=== PATIENT | male | born 1970 | race Caucasian/White ===

== ENCOUNTER 2018-04-22 19:23 | Inpatient (IN) | payer OTHER ==
[~2018-04-22] VITALS: Ht 170.2 cm; Wt 90.3 kg
--- NOTE | ~2018-04-22 | EKG ---
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
--- NOTE | ~2018-04-22 | PATH ---
[facility] [address] [place] [address] PATHOLOGY RPT PROCEDURE Name: JAMAL CHUNG Room #: 358-P [facility] IN M.R.#: [id number] Admission: 04/22/18 Date of : 74 Discharge: 04/24/18 Report #: [id number] Path Case #: [id number] [facility] Accession Number: [id number] . 01 Material submitted: . RECTAL POLYP . 01 Clinical history: . GI bleed . 02 Diagnosis: Polyp, rectal polyp, endoscopic biopsy: - Hyperplastic polyp. - Negative for dysplasia. (IUV:home office representative; 04/26/2018) MBR/04/26/2018 . 02 Electronically signed: . Francoise Wasserman MD, Pathologist NPI- [id number] . 01 Gross description: . The specimen is received in formalin, labeled "Lanter, Jamal, rectal polyp" and consists of 3 fragments of soft plunkett tissue measuring between 0.2 x 0.2 x 0.1 cm and 0.3 x 0.2 x 0.1 cm. They are entirely submitted in A1. (SDY; 04/25/2018) SYU/SYU . 02 Pathologist provided ICD-10: K62.1 . 02 CPT . 992346 Specimen Comment: A courtesy copy of this report has been sent to Specimen Comment: [phone], , . Specimen Comment: Report sent to ,DR ALEXANDER / DR VICENTE Performed at: [address] [facility], [place], [place] [id number] MD Rosalio Diaz MD Phone: [phone] Performed at: [address] [id number] MD Francoise Wasserman MD Phone: [phone]
[2018-04-22 20:02] LABS: ABSOLUTE NEUTROPHILS 6.1 thou/uL (1.4-8.2); BASOPHILS 0.5 % (0.0-2.0); EOSINOPHILS 1.2 % (0.0-3.0); HEMATOCRIT 35.4 % (42.0-52.0); HEMOGLOBIN 11.9 gm/dL (14.0-18.0); LYMPHOCYTES 32.3 % (24.0-44.0); MCH 30.3 pg (26.0-34.0); MCHC 33.6 g/dL (28.0-37.0); MCV 90.2 fL (80.0-100.0); MONOCYTES 6.8 % (1.0-8.0); PLATELET COUNT 230 thou/uL (150-400); POLYS 59.2 % (36.0-66.0); RBC 3.92 mil/uL (4.50-6.00); RDW 12.9 % (10.5-14.5); WBC 10.3 thou/uL (4.0-11.0)
[2018-04-22 20:05] LABS: ANION GAP 13 mmol/L (7-16); BUN 18 mg/dL (7-18); CALCIUM 8.1 mg/dL (8.5-10.1); CHLORIDE 105 mmol/L (98-107); CO2 23 mmol/L (21-32); CREATININE 1.1 mg/dL (0.7-1.3); GLUCOSE 159 mg/dL (74-106); POTASSIUM 3.4 mmol/L (3.5-5.1); SODIUM 141 mmol/L (136-145)
[2018-04-22 20:10] LABS: APTT 21.4 Seconds (24.5-32.8); PROTIME 10.8 Seconds (9.3-11.4)
[2018-04-22 20:14] LABS: TROPONIN-I <0.06 ng/mL (<0.06)
[2018-04-22 20:45] VITALS: BP 133/85
[2018-04-22 23:32] VITALS: BP 156/99
[2018-04-23] VITALS (8 sets, daily range): BP systolic 121–137; BP diastolic 82–94
[2018-04-23 01:23] LABS: HEMATOCRIT 33.3 % (42.0-52.0); HEMOGLOBIN 11.1 gm/dL (14.0-18.0); MCH 29.9 pg (26.0-34.0); MCHC 33.4 g/dL (28.0-37.0); MCV 89.4 fL (80.0-100.0); RBC 3.72 mil/uL (4.50-6.00); RDW 12.7 % (10.5-14.5); WBC 11.6 thou/uL (4.0-11.0)
[2018-04-23 01:30] LABS: CREATININE 0.9 mg/dL (0.7-1.3); POTASSIUM 3.9 mmol/L (3.5-5.1)
[2018-04-23 20:21] LABS: HEMATOCRIT 29.9 % (42.0-52.0); HEMOGLOBIN 10.3 gm/dL (14.0-18.0)
[2018-04-24 03:22] VITALS: BP 121/84
[2018-04-24 05:17] LABS: HEMOGLOBIN 9.2 gm/dL (14.0-18.0); MCH 30.9 pg (26.0-34.0); MCHC 33.9 g/dL (28.0-37.0); MCV 91.3 fL (80.0-100.0); RBC 2.96 mil/uL (4.50-6.00); RDW 12.9 % (10.5-14.5); WBC 5.9 thou/uL (4.0-11.0)
[2018-04-24 07:24] VITALS: BP 142/87
[2018-04-24 10:41] VITALS: BP 142/87
[2018-04-24 11:57] VITALS: BP 146/96
== END 2018-04-24 14:44 | disposition home or self-care (01) | DRG 378 ==
LOC: ER 19:23 → EROBS 22:19 → 3W 04-23 00:16
PROVIDERS: Emergency Medicine; Hospitalist; Nurse Practitioner Family
PROC: 0DBP8ZZ Excision of Rectum, Via Natural or Artificial Opening Endoscopic (ICD-10-PCS; principal; 2018-04-24)
PROC: 0DJ08ZZ Inspection of Upper Intestinal Tract, Via Natural or Artificial Opening Endoscopic (ICD-10-PCS; principal; 2018-04-24)
DX: K57.31 Diverticulosis of large intestine without perforation or abscess with bleeding (principal); D62 Acute posthemorrhagic anemia; K21.9 Gastro-esophageal reflux disease without esophagitis; K62.1 Rectal polyp; F12.90 Cannabis use, unspecified, uncomplicated; K64.8 Other hemorrhoids; Z23 Encounter for immunization; Z98.0 Intestinal bypass and anastomosis status; Z79.899 Other long term (current) drug therapy
CPT/HCPCS: 10080; 62110; 62900